=== PATIENT | female | born 1975 | race Caucasian/White ===

== ENCOUNTER → 2023-04-19 | Outpatient (CLI) | payer MEDICARE, MEDICAID, SELFPAY ==
--- NOTE | 2023-04-19 13:20 | RAD_ITS ---
INDICATION: M51.36 CHRONIC LOWER BACK PAIN. EXAMINATION/TECHNIQUE: X-RAY - XR Spine Lumbar 2 or 3 Views COMPARISON: None. FINDINGS: Vertebral bodies are normal height. No definite fracture demonstrated. No subluxation. Disc space narrowing with osteophytes most pronounced at L4-5 and L5-S1. Mild facet arthropathy most pronounced in the lower levels. No paravertebral soft tissue mass identified. Numerous small calcifications overlying the region of kidneys likely renal calculi or nephrocalcinosis. Surgical clips right upper abdomen. RAD/Lumbar Spine 2 or 3 Views IMPRESSION: No evidence of fracture or subluxation. Degenerative changes with discogenic disease and facet arthropathy mainly at the lower levels. Probable bilateral nephrolithiasis. Electronically Signed: Lisa Maldonado MD at 7:53 EDT ,
[2023-04-19 14:08] LABS: Amphetamine Urine VISTA NEGATIVE (<1000 ng/mL); Barbiturate Urine VISTA NEGATIVE (< 200 ng/mL); Benzodiazepine Urine VISTA POSITIVE (< 200 ng/mL); Cocaine Urine VISTA NEGATIVE (< 300 ng/mL); Ecstacy Urine VISTA NEGATIVE (< 500 ng/mL); Methadone Urine VISTA NEGATIVE (< 300 ng/mL); PCP Urine VISTA NEGATIVE (< 25 ng/mL); THC Urine VISTA NEGATIVE (< 50 ng/mL); Vista UDS pH Range 6
== END | disposition home or self-care (01) ==
LOC: LAB 12:46
PROVIDERS: PCP Nurse Practitioner Primary Care; Referring Provider Anesthesiology Pain Medicine; Visit Provider Anesthesiology Pain Medicine
DX: M51.36 Other intervertebral disc degeneration, lumbar region (principal); F11.20 Opioid dependence, uncomplicated; M47.816 Spondylosis without myelopathy or radiculopathy, lumbar region
CPT/HCPCS: 72100; 80307

== ENCOUNTER 2024-04-19 10:28 | Emergency (ER) | payer MEDICARE, MEDICAID, SELFPAY ==
[2024-04-19 10:29] VITALS: BP 112/78; PULSE 75; RESP 19; TEMP 35.9; O2SAT 100
--- NOTE | 2024-04-19 10:56 | EX.ED.DYSGE1 ---
HPI History of Present Illness Chief Complaint: Flank Pain Informant: patient Narrative Narrative: Worsening left flank pain for the past day. She reports she has had chronic pain in her left flank for years has seen urology Dr. Jennifer strong in [place], she states spongy kidney disease, CKD stage III history. There has been no intervention she states she seen her surgeon however unclear of what specialist. There is been no surgical plans. She denies urinary symptoms. She reports she recently started working at [employer] and pain is worse with movement. She is use Tylenol with relief. Has previously been on Percocet however does not like using this. Denies nausea or vomiting. Denies fevers. PFSH PFSH Medical History Kidney disease Home Medications ?Medication ?Instructions ?Recorded ?Last Taken ?Type cefdinir 300 mg capsule 300 mg PO Q12H #14 caps 04/19/24 Unknown Rx oxycodone-acetaminophen 5 mg-325 1 tab PO Q6H PRN PRN Pain 3 days 04/19/24 Unknown Rx mg tablet #12 TABLETS Allergy/AdvReac Type Severity Reaction Status Date / Time No Known Allergies Allergy Verified 04/19/24 10:30 Social History Smoking Status: Current every day smoker tobacco type: cigarettes ROS ROS ED Constitutional Constitutional ED: Denies chills, fever(s) or sweats Eyes Eyes: Denies change in vision ENT ENT ED: Denies dysphagia or sore throat Cardiovascular Cardiovascular: Denies chest pain, leg edema, palpitations or racing heartbeat Respiratory/Chest Respiratory/Chest: Denies cough, dyspnea or dyspnea on exertion Gastrointestinal Gastrointestinal: Denies abdominal pain, diarrhea, nausea or vomiting Genitourinary Genitourinary ED: Denies dysuria, hematuria or urinary frequency Musculoskeletal Musculoskeletal: Reports back pain; Denies extremity pain or neck pain Integumentary Denies rash or wounds Neurologic Neurologic: Denies headache(s), paresthesias or weakness EXAM Physical Exam Const Vital Signs: 04/19/24 10:29 04/19/24 12:19 04/19/24 13:20 Temperature 96.7 F L 98.7 F Temperature Source Temporal Pulse Rate 75 96 67 Respiratory Rate 19 H 16 16 Blood Pressure 112/78 98/72 146/72 H Blood Pressure Mean 89 80 96 Pulse Ox 100 98 98 Oxygen Delivery Method Room Air Room Air Positive well nourished and well developed General Appearance ED: well developed and NAD HEENT Reports moist mucous membranes normocephalic and atraumatic Eyes EOMs intact bilaterally and conjunctivae normal General Eye ED: Yes normal appearance of both eyes Neck no lymphadenopathy and supple General: Negative for tenderness Chest Wall Chest: Negative for tenderness Resp normal respiratory effort and normal air movement Effort and Inspection: symmetric chest movement; Negative for respiratory distress Cardio regular rate, regular rhythm and no murmurs Peripheral Pulses: pulses 2+ throughout GI normal to inspection, nondistended, normoactive bowel sounds and non-tender Palpation: Negative for guarding or rebound tenderness present Back/Spine no CVA tenderness and no thoracic nor lumbar tenderness Back/Spine Narrative: No rash, reproducible left flank pain with movement. Straight leg test negative. Extremity normal to inspection General Extremety ED: Negative for edema or tenderness General Extremity: Negative for edema Neuro oriented x3 and no sensory deficits noted Sensorium / Orientation: awake and alert Skin no rashes or lesions noted and no wounds MDM MDM MDM Narrative Medical decision making narrative: Interventions / MDM: Differential diagnosis: UTI, musculoskeletal, medullary sponge renal disease. Diagnosis considered but do not suspect: Obstructive uropathy however CT negative. My EKG interpretation: N/A Imaging independently reviewed and interpreted by myself: CT abdomen pelvis: Calcifications bilateral kidneys no obstructive uropathy. External documents reviewed: N/A Test considered but not ordered:N/A ED course: Patient with history appears to be musculoskeletal however she reports significant pain in her left flank. I sent for labs and urine, she is given oxycodone for her pain. Labs returned normal white count creatinine at 1.15. Stage III chronic kidney disease history. You are noted leukocytes and greater than 100 WBCs. 2+ bacteria. Sent for urine culture. She covered Rocephin with infection concerns without symptoms. Due to her pain, CT scan obtained to rule out obstructive stone with UTI. Results negative for any obstructive uropathy. Pain more controlled with the pain medicines. She will be continued on antibiotics short prescription for oxycodone written for pain control. Will avoid NSAIDs with her stage III kidney disease. She wanted to see a local urologist therefore given follow-up with Dr. Oviedo. Return precautions. All questions were answered. Re-evaluation: stable Disposition discussed with patient/family/significant other: Patient Case discussed with consulting clinician: N/A This note was generated with [employer] dictation software. It may contain incorrect words, spelling, and punctuation that were not noted in checking the note before signing. Lab Data Attestation: I reviewed the patient's lab results. Labs: Laboratory Results - last 24 hr 04/19/24 04/19/24 10:54 11:00 WBC 7.5 RBC 4.86 Hgb 13.7 Hct 43.6 MCV 89.7 MCH 28.2 MCHC 31.4 L RDW Std Deviation 46.5 H RDW Coeff of Nadya 14.6 Plt Count 289 MPV 11.0 Immature Gran % (Auto) 0.300 Neut % (Auto) 54.8 Lymph % (Auto) 33.3 [place] % (Auto) 9.7 Eos % (Auto) 1.1 Baso % (Auto) 0.8 Absolute Neuts (auto) 4.1 Absolute Lymphs (auto) 2.51 Nucleated RBC % 0 Sodium 137 Potassium 3.0 L Chloride 105 Carbon Dioxide 23.0 Anion Gap 9 BUN 17 Creatinine 1.15 H Est GFR (MDRD) Af Amer 64 Est GFR (MDRD) Non-Af 53 L BUN/Creatinine Ratio 14.8 Glucose 102 Calcium 9.5 Urine Color Yellow Urine Clarity Sl. Cloudy Urine pH 6.5 Ur Specific [place] 1.010 Urine Protein 15 H Urine Glucose (UA) Normal Urine Ketones Negative Urine Occult Blood 10 H Urine Nitrite Negative Urine Bilirubin Negative Urine Urobilinogen Normal Ur Leukocyte Esterase 500 H Urine RBC 0-5 SEEN Urine WBC >100 SEEN Ur Squamous Epith Cells 5-10 SEEN Urine Bacteria 2+ Urine Mucus 0 SEEN Radiography Diagnostic Testing: Clinical Impression(s) from Imaging Studies Abdomen/Pelvis CT 04/19/24 11:27 IMPRESSION: Bilateral internal calcifications in keeping with bilateral medullary sponge kidneys. Mildly enlarged lymph nodes within the fat of the mesentery with [place] appearance. Localized inflammation should be ruled out. No evidence of a ureteral obstruction. Electronically Signed: Kale Fay MD at 11:53 EDT , Discharge Plan Triage Chief Complaint: Flank Pain ED Provider: Joesph Howard Dx/Rx/DC Orders Clinical Impression: Complicated UTI (urinary tract infection), Chronic flank pain, Medullary sponge kidney of both kidneys, Hypokalemia Instructions: Urinary Tract Infections in Women Prescriptions: New oxycodone-acetaminophen 5-325 mg tablet 1 tab PO Q6H PRN PRN (Reason: Pain) 3 Days Qty: 12 0RF cefdinir 300 mg capsule 300 mg PO Q12H Qty: 14 0RF Stand Alone Forms: ED Work / School Excuse Primary Care Provider: Juan Miguel Cardona NP Referrals: Jan Oviedo MD [Med Staff - Active Staff] - 1-2 Weeks Juan Miguel Cardona NP, REPORTS ANALYST-C [Primary Care Provider] - Activity Restrictions/Additional Instructions: CT scan with no obstructive uropathy. Urine with infection. White count normal. Take and finish antibiotic as prescribed. Take pain medicine as prescribed. Follow-up with Dr. Oviedo as you wish for local urologist. Return if any develop fevers nausea vomiting unable to keep medications down. Print Language: American Disposition Disposition: Home, Self Care Discharge Date/Time: 04/19/24 13:23
[2024-04-19 11:01] LABS: Absolute Lymphocyte Count 2.51 X10^3/uL (0.83-4.51); Absolute Neutrophil Count 4.1 X10^3/uL (2.0-7.7); Basophil# 0.06 X10^3/uL; Basophil% 0.8 % (0-1); Eosinophil# 0.08 X10^3/uL; Eosinophils% 1.1 % (0-5); Hematocrit 43.6 % (37-47); Hemoglobin 13.7 g/dL (12.0-15.0); Lymphocyte # 2.51 X10^3/ul (0.83-4.51); Lymphocyte % 33.3 % (19-41); Mean Corp Hgb Conc 31.4 g/dL (32-36); Mean Corpuscular Hgb 28.2 pg (27.0-32.0); Mean Corpuscular Volume 89.7 fL (81-99); Monocyte# 0.73 X10^3/uL; Monocyte% 9.7 % (0-10); NRBC Flagged by Analyzer 0 % (0-5); Neutrophil # 4.13 X10^3/uL (2.7-7.7); Neutrophil % 54.8 % (47-70); Platelet Count 289 K/mm3 (150-450); RBC Distribution Width CV 14.6 % (11.6-14.6); RBC Distribution Width SD 46.5 fl (35.1-43.9); Red Blood Count 4.86 M/mm3 (4.2-5.4); White Blood Count 7.5 K/mm3 (4.4-11.0)
[2024-04-19 11:06] LABS: Mucous, Urine 0 SEEN /hpf (<or=2+)
[2024-04-19 11:10] LABS: Color, Urine Yellow (Yellow); Glucose, Dipstick Normal (Normal); Ketone-Dipstick Negative (Negative); Leukocyte Esterase-Dipstick 500 /ul (Negative); Nitrite-Dipstick Negative (Negative); Occult Blood-Urine 10 /ul (Negative); Protein-Dipstick 15 mg/dl (Negative); Urine Bilirubin Dipstick Negative (Negative); Urine Clarity Sl. Cloudy (Clear); Urine Urobilinogen Normal (Normal); Urine pH 6.5 (5.0 - 8.0)
[2024-04-19] MEDS: oxyCODONE 5 MG Tablet PO (11:10)
[2024-04-19 11:13] LABS: Anion Gap 9 (5-15); BUN 17 mg/dL (7-18); BUN/Creat Ratio 14.8 RATIO (10-20); Calcium,Total 9.5 mg/dL (8.5-10.1); Chloride 105 mmol/L (98-107); Creatinine, Serum 1.15 mg/dL (0.55-1.02); EST Glomerular Filtration Rate 53 mL/min (>60); Est Glom Filt Rate - Afr Amer 64 mL/min (>60); Glucose 102 mg/dL (74-106); Sodium Level 137 mmol/L (136-145)
[2024-04-19 11:21] LABS: Red Blood Cells-Urine 0-5 SEEN /hpf (0-5); Squamous Epithelial Cells - UA 5-10 SEEN /hpf (5-10); White Blood Cells >100 SEEN /hpf (0-5)
[2024-04-19 11:22] LABS: Bacteria 2+ /hpf (None Seen)
--- NOTE | 2024-04-19 11:27 | CT_ITS ---
STUDY: CT ABDOMEN AND PELVIS WITHOUT CONTRAST REASON FOR EXAM: Female, 49 years old. Left flank pain RADIATION DOSAGE (If Supplied By Facility): CTDIvol = ( 21.72 ) mGy, DLP = ( 1118.04 ) mGycm TECHNIQUE: Transaxial images were obtained from the dome of the diaphragm to the symphysis pubis without oral contrast, and without intravenous contrast. Sagittal and coronal images were reconstructed. Individualized dose optimization techniques were used for this CT. COMPARISON: None. FINDINGS: The visualized lung bases are unremarkable. Calcification of the mitral valve annulus. Normal liver. There are surgical clips in the gallbladder fossa consistent with a prior cholecystectomy. Normal spleen. Normal pancreas. Normal bilateral adrenal glands. There are multiple bilateral intrarenal calcifications suggestive of bilateral medullary sponge kidney. There is a small hiatal hernia. Normal small intestine. Scattered sigmoid diverticula. The appendix is visualized and appears normal. Normal abdominal aorta. Normal inferior vena cava. There is borderline retroperitoneal lymphadenopathy with enlarged nodes no greater than 10mm in the short axis diameter. There is evidence of a increased markings within the mesenteric fat in the root of the mesentery. There are slightly enlarged lymph nodes within the mesenteric fat. This is nonspecific. No definite mass lesion is seen. Normal urinary bladder. A metallic clip is seen in the retroperitoneal fat in the left hemipelvis. Normal abdominal wall. Normal osseous structures. CT/Abdomen/Pelvis without Cont IMPRESSION: Bilateral internal calcifications in keeping with bilateral medullary sponge kidneys. Mildly enlarged lymph nodes within the fat of the mesentery with eden appearance. Localized inflammation should be ruled out. No evidence of a ureteral obstruction. Electronically Signed: Kale Fay MD at 11:53 EDT ,
[2024-04-19] MEDS: Ceftriaxone 1 GM/50 ML BAG IV (12:09)
[2024-04-19 12:19] VITALS: BP 98/72; PULSE 96; RESP 16; O2SAT 98
[2024-04-19] MEDS: Potassium Chloride Oral Tablet 20 MEQ 40 MEQ PO (12:46)
[2024-04-19 13:20] VITALS: BP 146/72; PULSE 67; RESP 16; TEMP 37.1; O2SAT 98
== END 2024-04-19 13:23 | disposition home or self-care (01) ==
PROVIDERS: Emergency Provider Emergency Medicine; PCP Nurse Practitioner Primary Care; Visit Provider Emergency Medicine
DX: N39.0 Urinary tract infection, site not specified (principal); N18.30 Chronic kidney disease, stage 3 unspecified; F17.210 Nicotine dependence, cigarettes, uncomplicated; E87.6 Hypokalemia; R10.9 Unspecified abdominal pain; Q61.5 Medullary cystic kidney; G89.29 Other chronic pain
CPT/HCPCS: 74176; 80048; 81001; 85025; 87077; 87086; 87088; 87186; 96365; 99283; J7030; J7050